=== PATIENT | male | born 1995 | race Two or more races ===

== ENCOUNTER → 2016-10-12 | Outpatient (REF) | payer OTHER, MEDICAID | LOC: M LAB REF 09:53 | PROVIDERS: ATTEND Physician Assistant | DX: Z11.3 Encounter for screening for infections with a predominantly sexual mode of transmission (principal) ==

== ENCOUNTER → 2016-12-20 | Outpatient (REF) | payer BC | LOC: M LAB REF 16:53 | PROVIDERS: ATTEND Physician Assistant | DX: Z11.3 Encounter for screening for infections with a predominantly sexual mode of transmission (principal) ==

== ENCOUNTER → 2018-08-09 | Outpatient (REF) | payer BC ==
[2018-08-22 14:22] LABS: CHLAMYDIA DNA AMPLIFICATION POSITIVE (NEGATIVE); GC DNA AMPLIFICATION NEGATIVE (NEGATIVE)
== END ==
LOC: M LAB REF 12:22
PROVIDERS: ATTEND Physician Assistant
DX: Z11.3 Encounter for screening for infections with a predominantly sexual mode of transmission (principal)

== ENCOUNTER 2021-03-17 11:20 | Emergency (ER) | payer BC, OTHER ==
[~2021-03-17] VITALS: Ht 193 cm; Wt 112.1 kg
[2021-03-17] MEDS ORDERED: FAMOTIDINE INJ 20MG/2ML VIAL (S0028 PER 1) IVP ONE (11:30)
[2021-03-17] MEDS ORDERED: PRED20TA PO (14:07)
[2021-03-17] MEDS ORDERED: EPIP0.3I2 IM (14:08)
[2021-03-17 14:30] VITALS: BP 110/70
== END 2021-03-17 14:43 | disposition home or self-care (01) ==
LOC: EDBD 11:20 → M ED 11:20
DX: L29.9 Pruritus, unspecified (principal); T63.441A Toxic effect of venom of bees, accidental (unintentional), initial encounter; Y92.89 Other specified places as the place of occurrence of the external cause

== ENCOUNTER → 2021-05-05 | Outpatient (REF) | payer OTHER ==
[~2021-05-05] MED LIST: EPIP0.3I2 IM; PRED20TA PO
[2021-05-05 19:10] LABS: GC DNA AMPLIFICATION NEGATIVE (NEGATIVE)
== END ==
LOC: M LAB REF 16:26
PROVIDERS: ATTEND Physician Assistant
DX: Z11.3 Encounter for screening for infections with a predominantly sexual mode of transmission (principal)

== ENCOUNTER 2022-02-27 07:45 | Emergency (ER) | payer OTHER ==
[~2022-02-27] VITALS: Ht 193 cm; Wt 114.7 kg
[2022-02-27 09:36] VITALS: BP 125/62
== END 2022-02-27 09:37 | disposition home or self-care (01) ==
LOC: M ED 07:45
DX: S93.401A Sprain of unspecified ligament of right ankle, initial encounter (principal); X50.9XXA Other and unspecified overexertion or strenuous movements or postures, initial encounter; Y92.89 Other specified places as the place of occurrence of the external cause; Y93.67 Activity, basketball; Z91.030 Bee allergy status

== ENCOUNTER 2022-11-09 08:24 | Emergency (ER) | payer OTHER ==
[~2022-11-09] VITALS: Ht 193 cm; Wt 114.4 kg
[2022-11-09] MEDS ORDERED: BOOSTRIX/ADACEL VACCINE (DIPHTH/PERTUSS/ACELL/TETANUS) 0.5ML SYR IM.IMMUN ONE (09:25)
[2022-11-09] MEDS ORDERED: BACITRACIN OINTMENT 30GM TUBE TOP ONE (09:25)
[2022-11-09] MEDS ORDERED: LIDOCAINE 2% MDV 20ML VIAL SC ONE (09:25)
[2022-11-09 10:34] VITALS: BP 155/70
== END 2022-11-09 10:47 | disposition home or self-care (01) ==
LOC: M ED 08:24
DX: S91.115A Laceration without foreign body of left lesser toe(s) without damage to nail, initial encounter (principal); W18.40XA Slipping, tripping and stumbling without falling, unspecified, initial encounter; Y92.019 Unspecified place in single-family (private) house as the place of occurrence of the external cause; Y93.01 Activity, walking, marching and hiking; Y99.8 Other external cause status